=== PATIENT | female | born 1945 | race Caucasian/White ===

== ENCOUNTER 2017-06-03 17:10 | Inpatient (IN) | payer MEDICARE, MEDICAID ==
[~2017-06-03] VITALS: Ht 165.1 cm; Wt 64.9 kg
[2017-06-03] MEDS ORDERED: ALBUTEROL/IPRATROPIUM 2.5MG/0.5MG, 3 ML ONE (18:16)
[2017-06-03] MEDS ORDERED: ALBUTEROL/IPRATROPIUM 2.5MG/0.5MG, 3 ML NPPB ONE (18:30)
[2017-06-03] MEDS ORDERED: SODIUM CHLORIDE FLUSH 10ML SYR IVF ONE (18:30)
[2017-06-03] MEDS: SODIUM CHLORIDE 0.9% 1,000ML IVBOLUS ONE ×2 (18:43→18:44)
[2017-06-03 18:52] LABS: ALANINE AMINOTRANSFERASE 26 U/L (12-78); ALBUMIN 2.9 g/dL (3.4-5.0); ANION GAP 8 mmol/L (5-15); CALCIUM 7.6 mg/dL (8.5-10.1); CHLORIDE 105 mmol/L (98-107); CREATININE 0.74 mg/dL (0.55-1.02)
[2017-06-03 18:53] LABS: ALKALINE PHOSPHATASE 77 U/L (45-117); BILIRUBIN,TOTAL 0.8 mg/dL (0.2-1.0); TOTAL PROTEIN 6.5 g/dL (6.4-8.2)
[2017-06-03 18:56] LABS: MEAN CORPUSCULAR HEMOGLOBIN 29.4 pg (27.0-34.8); MEAN CORPUSCULAR HGB CONC 33.1 g/dL (32.4-35.8); MEAN CORPUSCULAR VOLUME 88.7 fL (80-100); MEAN PLATELET VOLUME 9.9 fL (7.4-10.4); PLATELET COUNT 195 x10^3/uL (130-400); RED BLOOD COUNT 5.54 x10^6/uL (3.82-5.3); RED CELL DISTRIBUTION WIDTH 14.1 % (9.6-15.2)
[2017-06-03 19:14] LABS: BASOPHILS # (AUTO) 0.02 x10^3/uL (0-0.1); BASOPHILS % (AUTO) 0 % (0-1); EOSINOPHILS # (AUTO) 0.15 x10^3/uL (0-0.4); EOSINOPHILS % (AUTO) 1 % (1-7); LYMPHOCYTES # (AUTO) 0.99 x10^3/uL (1-3.4); LYMPHOCYTES % (AUTO) 6 % (22-44); MD SCAN; MONOCYTES # (AUTO) 1.08 x10^3/uL (0.2-0.8); MONOCYTES % (AUTO) 7 % (2-9); NEUTROPHILS # (AUTO) 13.97 x10^3/uL (1.8-6.8); NEUTROPHILS % (AUTO) 86 % (42-75)
[2017-06-03] MEDS ORDERED: PRED5TAB PO (19:17)
[2017-06-03] MEDS ORDERED: OMEP-110 PO (19:17)
[2017-06-03] MEDS ORDERED: METO25TA35 PO (19:17)
[2017-06-03] MEDS ORDERED: DIGO125T PO (19:17)
[2017-06-03] MEDS ORDERED: BUDE10.2 INH (19:17)
[2017-06-03] MEDS ORDERED: POTA20TA14 PO (19:17)
[2017-06-03] MEDS ORDERED: ROSU5TAB PO (19:17)
[2017-06-03] MEDS ORDERED: FURO40TA6 PO (19:17)
[2017-06-03] MEDS ORDERED: ALBU8.5H8 INH (19:17)
[2017-06-03 20:02] LABS: CULTURE INDICATED? YES; MICROSCOPIC INDICATED
[2017-06-03 20:55] VITALS: BP 101/69
[2017-06-03] MEDS ORDERED: POTASSIUM CHLORIDE 40 MEQ in SODIUM CHLORIDE 0.9% 500 ML IV ONE (21:30)
[2017-06-03] MEDS ORDERED: ONDANSETRON 2MG/ML, 2ML IVPush PRN (21:30)
[2017-06-03] MEDS ORDERED: OXYcodone IR 5MG TABLET PO PRN (21:30)
[2017-06-03] MEDS ORDERED: ENALAPRILAT 1.25 MG/ML, 2ML IVPush PRN (21:30)
[2017-06-03] MEDS ORDERED: POLYETHYLENE GLYCOL 17 GM PACKET PO PRN (21:30)
[2017-06-03] MEDS ORDERED: morphine SULFATE 10 MG/ML, 1ML IVPush PRN (21:30)
[2017-06-03] MEDS ORDERED: POTASSIUM CHLORIDE 20 MEQ TAB.ER.PRT PO ONE (21:30)
[2017-06-03] MEDS ORDERED: BISACODYL 10 MG SUPP PR PRN (21:30)
[2017-06-03] MEDS ORDERED: hydrALAzine 20 MG/ML, 1ML IVPush PRN (21:30)
[2017-06-03] MEDS ORDERED: ALBUTEROL SULFATE 2.5 MG/3 ML NPPB PRN (22:00)
[2017-06-03 22:11] LABS: CREATINE KINASE, TOTAL 46 U/L (26-192); FREE T4 (FREE THYROXINE) 0.92 ng/dL (0.76-1.46)
[2017-06-03] MEDS: SODIUM CHLORIDE 0.9% 1,000 ML IV SCH (22:48)
[2017-06-03] MEDS: CEFTRIAXONE PMX 1GM/50ML 50 ML IV SCH (22:49)
[2017-06-03] MEDS: GUAIFENESIN ER 600 MG TABLET PO SCH (22:55)
[2017-06-03] MEDS: DOXYCYCLINE 100MG TABLET PO SCH (22:55)
[2017-06-03] MEDS: HEPARIN 5,000 UNITS/ML, 1ML SQ SCH (22:55)
[2017-06-03] MEDS: ATORVASTATIN 10 MG TABLET PO SCH (22:55)
[2017-06-03 23:09] LABS: HEMOGLOBIN A1C 6.4 % (4.2-6.3)
[2017-06-04] VITALS (7 sets, daily range): BP systolic 86–110; BP diastolic 60–70
[2017-06-04 04:39] LABS: BASOPHILS # (AUTO) 0.02 x10^3/uL (0-0.1); BASOPHILS % (AUTO) 0 % (0-1); EOSINOPHILS % (AUTO) 1 % (1-7); LYMPHOCYTES # (AUTO) 0.91 x10^3/uL (1-3.4); LYMPHOCYTES % (AUTO) 7 % (22-44); MD NO; MEAN CORPUSCULAR HEMOGLOBIN 29.8 pg (27.0-34.8); MEAN CORPUSCULAR HGB CONC 33.3 g/dL (32.4-35.8); MEAN CORPUSCULAR VOLUME 89.5 fL (80-100); MEAN PLATELET VOLUME 9.9 fL (7.4-10.4); MONOCYTES # (AUTO) 0.99 x10^3/uL (0.2-0.8); MONOCYTES % (AUTO) 8 % (2-9); NEUTROPHILS # (AUTO) 11.12 x10^3/uL (1.8-6.8); NEUTROPHILS % (AUTO) 85 % (42-75); PLATELET COUNT 151 x10^3/uL (130-400); RED BLOOD COUNT 4.94 x10^6/uL (3.82-5.3); RED CELL DISTRIBUTION WIDTH 14.2 % (9.6-15.2)
[2017-06-04 04:45] LABS: ALANINE AMINOTRANSFERASE 17 U/L (12-78); ALBUMIN 2.4 g/dL (3.4-5.0); ANION GAP 8 mmol/L (5-15); CALCIUM 7.3 mg/dL (8.5-10.1); CHLORIDE 111 mmol/L (98-107); CHOLESTEROL, TOTAL 175 mg/dL (140-239); CREATININE 0.63 mg/dL (0.55-1.02)
[2017-06-04 04:48] LABS: ALKALINE PHOSPHATASE 62 U/L (45-117); BILIRUBIN,TOTAL 0.5 mg/dL (0.2-1.0); HDL CHOLESTEROL (DIRECT) 47 mg/dL (40-60); TOTAL PROTEIN 5.5 g/dL (6.4-8.2); TRIGLYCERIDES 194 mg/dL (50-200); VLDL CHOLESTEROL 39 mg/dL (0-25)
[2017-06-04 06:12] LABS: LDL CHOLESTEROL,CALCULATED 89 mg/dL (54-169); LDL/HDL RATIO 1.9 (0.5-3.0)
[2017-06-04 06:13] LABS: CHOL/HDL RATIO 3.7; HDL CHOL % 27 % (28-40)
[2017-06-04] MEDS: ASPIRIN 325 MG TABLET EC PO SCH (06:16)
[2017-06-04] MEDS: POTASSIUM CHLORIDE 20 MEQ TAB.ER.PRT PO SCH (08:12)
[2017-06-04] MEDS: HEPARIN 5,000 UNITS/ML, 1ML SQ SCH ×3 (08:12→23:00)
[2017-06-04] MEDS: DOXYCYCLINE 100MG TABLET PO SCH ×2 (08:13→20:29)
[2017-06-04] MEDS: SENNA/DOCUSATE TABLET PO SCH (08:13)
[2017-06-04] MEDS: OMEPRAZOLE 20 MG CAPSULE.DR PO SCH (08:13)
[2017-06-04] MEDS: METOPROLOL TARTRATE 25 MG TABLET PO SCH ×2 (08:13→20:30)
[2017-06-04] MEDS: GUAIFENESIN ER 600 MG TABLET PO SCH ×2 (08:13→20:29)
[2017-06-04] MEDS: FLUTICASONE/VILANTEROL 200-25MCG/INH INH SCH (10:03)
[2017-06-04] MEDS: SODIUM CHLORIDE 0.9% 1,000 ML IV SCH ×3 (13:00→20:51)
[2017-06-04] MEDS: ATORVASTATIN 10 MG TABLET PO SCH (20:29)
[2017-06-04] MEDS ORDERED: DIGOXIN 0.125 MG TABLET PO SCH (21:00)
[2017-06-04] MEDS: CEFTRIAXONE PMX 1GM/50ML 50 ML IV SCH (21:53)
[2017-06-04] MEDS: ACETAMINOPHEN 325 MG TABLET PO PRN (22:24)
[2017-06-05 01:28] VITALS: BP 99/65
[2017-06-05] MEDS: SODIUM CHLORIDE 0.9% 1,000 ML IV SCH (03:49)
[2017-06-05 06:50] VITALS: BP 121/78
[2017-06-05] MEDS: HEPARIN 5,000 UNITS/ML, 1ML SQ SCH ×2 (07:00→15:00)
[2017-06-05] MEDS ORDERED: ERGOCALCIFEROL 50,000 UNIT CAPSULE PO SCH (07:30)
[2017-06-05] MEDS: SENNA/DOCUSATE TABLET PO SCH (08:43)
[2017-06-05] MEDS: DOXYCYCLINE 100MG TABLET PO SCH (08:43)
[2017-06-05] MEDS: POTASSIUM CHLORIDE 20 MEQ TAB.ER.PRT PO SCH (08:43)
[2017-06-05] MEDS: GUAIFENESIN ER 600 MG TABLET PO SCH (08:43)
[2017-06-05] MEDS: FLUTICASONE/VILANTEROL 200-25MCG/INH INH SCH (08:43)
[2017-06-05] MEDS: ACETAMINOPHEN 325 MG TABLET PO PRN (08:43)
[2017-06-05] MEDS: ASPIRIN 325 MG TABLET EC PO SCH (08:43)
[2017-06-05] MEDS: OMEPRAZOLE 20 MG CAPSULE.DR PO SCH (08:43)
[2017-06-05 09:10] LABS: BASOPHILS # (AUTO) 0.04 x10^3/uL (0-0.1); BASOPHILS % (AUTO) 0 % (0-1); EOSINOPHILS # (AUTO) 0.09 x10^3/uL (0-0.4); EOSINOPHILS % (AUTO) 1 % (1-7); LYMPHOCYTES % (AUTO) 10 % (22-44); MD NO; MEAN CORPUSCULAR HGB CONC 32.7 g/dL (32.4-35.8); MEAN CORPUSCULAR VOLUME 88.9 fL (80-100); MEAN PLATELET VOLUME 9.9 fL (7.4-10.4); MONOCYTES # (AUTO) 0.67 x10^3/uL (0.2-0.8); MONOCYTES % (AUTO) 8 % (2-9); NEUTROPHILS # (AUTO) 7.15 x10^3/uL (1.8-6.8); NEUTROPHILS % (AUTO) 81 % (42-75); PLATELET COUNT 141 x10^3/uL (130-400); RED BLOOD COUNT 4.74 x10^6/uL (3.82-5.3); RED CELL DISTRIBUTION WIDTH 14.4 % (9.6-15.2)
[2017-06-05 09:18] LABS: ANION GAP 4 mmol/L (5-15); CALCIUM 7.6 mg/dL (8.5-10.1); CHLORIDE 113 mmol/L (98-107)
[2017-06-05 09:19] LABS: CREATININE 0.62 mg/dL (0.55-1.02)
[2017-06-05 11:17] VITALS: BP 100/68
[2017-06-05 12:47] VITALS: BP 119/80
[2017-06-05] MEDS ORDERED: DOXY100T PO (14:21)
[2017-06-05] MEDS ORDERED: ASPI-650 PO (14:21)
== END 2017-06-05 17:35 | DRG 640 ==
LOC: ED 18:52 → EDIP 20:15 → 3NW 20:41 → 3NE 06-05 09:30
PROVIDERS: ADMIT Internal Medicine; ATTEND Internal Medicine
DX: E86.0 Dehydration (principal); E43 Unspecified severe protein-calorie malnutrition; D68.59 Other primary thrombophilia; I48.2 Chronic atrial fibrillation; I50.9 Heart failure, unspecified; N39.0 Urinary tract infection, site not specified; J40 Bronchitis, not specified as acute or chronic; E87.6 Hypokalemia; E78.5 Hyperlipidemia, unspecified; G47.00 Insomnia, unspecified; Z95.2 Presence of prosthetic heart valve; K21.9 Gastro-esophageal reflux disease without esophagitis; Z79.899 Other long term (current) drug therapy; Z68.23 Body mass index [BMI] 23.0-23.9, adult; Z88.8 Allergy status to other drugs, medicaments and biological substances
CPT/HCPCS: 36415; 71046; 80048; 80053; 80061; 80162; 81001; 82306; 82533; 82550; 82607; 83036; 83735; 84439; 84443; 85025; 87040; 87077; 87086; 93005; 94640; 99285; J0696; J1644; J3480; J7613; J7620; J7030; J7040

== ENCOUNTER 2018-01-31 21:32 | Inpatient (IN) | payer MEDICARE, MEDICAID ==
[~2018-01-31] VITALS: Ht 165.1 cm; Wt 73.1 kg
[~2018-01-31 21:32] MED LIST: ALBU8.5H8 INH; ASPI-650 PO; BUDE10.2 INH; DIGO125T PO; DOXY100T PO; FURO40TA6 PO; METO25TA35 PO; OMEP-110 PO; POTA20TA14 PO; PRED5TAB PO; ROSU5TAB PO
[2018-01-31] MEDS ORDERED: ALBUTEROL/IPRATROPIUM 2.5MG/0.5MG, 3 ML ONE (21:53)
[2018-01-31] MEDS ORDERED: SODIUM CHLORIDE FLUSH 10ML SYR IVF ONE (22:00)
[2018-01-31] MEDS ORDERED: methylPREDNISolone SOD SUCC 125 MG/2 ML IVP ONE (22:00)
[2018-01-31] MEDS ORDERED: ALBUTEROL/IPRATROPIUM 2.5MG/0.5MG, 3 ML NPPB SCH (22:00)
[2018-01-31] MEDS ORDERED: ALBUTEROL/IPRATROPIUM 2.5MG/0.5MG, 3 ML NPPB PRN (22:00)
[2018-01-31 22:03] LABS: BASOPHILS # (AUTO) 0.04 x10^3/uL (0-0.1); BASOPHILS % (AUTO) 0 % (0-1); EOSINOPHILS % (AUTO) 0 % (1-7); LYMPHOCYTES # (AUTO) 0.54 x10^3/uL (1-3.4); LYMPHOCYTES % (AUTO) 6 % (22-44); MD NO; MEAN CORPUSCULAR HEMOGLOBIN 27.7 pg (27.0-34.8); MEAN CORPUSCULAR HGB CONC 32.8 g/dL (32.4-35.8); MEAN CORPUSCULAR VOLUME 84.5 fL (80-100); MEAN PLATELET VOLUME 10.6 fL (7.4-10.4); MONOCYTES # (AUTO) 0.32 x10^3/uL (0.2-0.8); MONOCYTES % (AUTO) 3 % (2-9); NEUTROPHILS # (AUTO) 8.78 x10^3/uL (1.8-6.8); NEUTROPHILS % (AUTO) 91 % (42-75); PLATELET COUNT 152 x10^3/uL (130-400); RED BLOOD COUNT 5.22 x10^6/uL (3.82-5.3); RED CELL DISTRIBUTION WIDTH 15.6 % (9.6-15.2)
[2018-01-31 22:15] LABS: ALANINE AMINOTRANSFERASE 19 U/L (12-78); ALBUMIN 3.2 g/dL (3.4-5.0); ANION GAP 9 mmol/L (5-15); CALCIUM 8.1 mg/dL (8.5-10.1); CHLORIDE 101 mmol/L (98-107); CREATININE 0.96 mg/dL (0.55-1.02)
[2018-01-31] MEDS ORDERED: methylPREDNISolone SOD SUCC 125 MG/2 ML ONE (22:15)
[2018-01-31 22:19] LABS: ALKALINE PHOSPHATASE 82 U/L (45-117); BILIRUBIN,TOTAL 0.7 mg/dL (0.2-1.0); TOTAL PROTEIN 6.9 g/dL (6.4-8.2); TROPONIN I 0.029 ng/mL (0.000-0.045)
[2018-01-31] MEDS ORDERED: ALBUTEROL SULFATE 2.5 MG/3 ML ONE (22:21)
[2018-01-31] MEDS ORDERED: BUDESONIDE 0.5 MG/2 ML INHA ONE (22:21)
[2018-01-31] MEDS ORDERED: CEFTRIAXONE PMX 1GM/50ML 50 ML IV ONE (22:30)
[2018-01-31] MEDS ORDERED: ALBUTEROL SULFATE 2.5 MG/3 ML NPPB PRN (22:30)
[2018-01-31] MEDS ORDERED: AZITHROMYCIN 500 MG in SODIUM CHLORIDE 0.9% 250 ML IV ONE (22:30)
[2018-01-31] MEDS ORDERED: CEFTRIAXONE PMX 1GM/50ML 50 ML ONE (22:43)
[2018-01-31] MEDS ORDERED: METO25TA35 PO (22:51)
[2018-01-31] MEDS ORDERED: FURO-93 PO (22:51)
[2018-01-31] MEDS ORDERED: LEVO25TA4 PO (22:51)
[2018-01-31 23:30] VITALS: BP 107/67
[2018-02-01] MEDS ORDERED: AZITHROMYCIN 500 MG in SODIUM CHLORIDE 0.9% 250 ML IV ONE (01:00)
[2018-02-01] MEDS ORDERED: LABETALOL 5MG/ML, 20ML IVPush PRN (01:30)
[2018-02-01] MEDS ORDERED: DOCUSATE 100 MG CAPSULE PO PRN (01:30)
[2018-02-01] MEDS ORDERED: CEFTRIAXONE PMX 1GM/50ML 50 ML IV ONE (01:30)
[2018-02-01] MEDS ORDERED: morphine SULFATE 10 MG/ML, 1ML IVPush PRN (01:30)
[2018-02-01] MEDS ORDERED: GABAPENTIN 300 MG CAPSULE PO PRN (01:30)
[2018-02-01] MEDS ORDERED: POLYETHYLENE GLYCOL 17 GM PACKET PO PRN (01:30)
[2018-02-01] MEDS ORDERED: hydrALAzine 20 MG/ML, 1ML IVPush PRN (01:30)
[2018-02-01] MEDS ORDERED: BISACODYL 10 MG SUPP PR PRN (01:30)
[2018-02-01] MEDS ORDERED: ACETAMINOPHEN 325 MG TABLET PO PRN (01:30)
[2018-02-01] MEDS ORDERED: ONDANSETRON 2MG/ML, 2ML IVPush PRN (01:30)
[2018-02-01] MEDS ORDERED: OXYcodone IR 5MG TABLET PO PRN (01:30)
[2018-02-01] MEDS ORDERED: ONDANSETRON ODT 4 MG PO PRN (01:30)
[2018-02-01] MEDS: SODIUM CHLORIDE 0.9% 1,000 ML IV SCH ×2 (01:50→12:47)
[2018-02-01] MEDS: HEPARIN 5,000 UNITS/ML, 1ML SQ SCH ×3 (01:51→18:00)
[2018-02-01] MEDS: methylPREDNISolone SOD SUCC 125 MG/2 ML IVPush SCH ×4 (01:51→21:02)
[2018-02-01 01:55] VITALS: BP 95/59
[2018-02-01 02:04] LABS: FREE T4 (FREE THYROXINE) 1.31 ng/dL (0.76-1.46); HEMOGLOBIN A1C 6.6 % (4.2-6.3); THYROID STIMULATING HORMONE 0.876 mIU/L (0.358-3.740)
[2018-02-01 05:32] LABS: MEAN CORPUSCULAR HEMOGLOBIN 27.7 pg (27.0-34.8); MEAN CORPUSCULAR HGB CONC 32.6 g/dL (32.4-35.8); MEAN PLATELET VOLUME 11.1 fL (7.4-10.4); PLATELET COUNT 129 x10^3/uL (130-400); RED BLOOD COUNT 4.69 x10^6/uL (3.82-5.3); RED CELL DISTRIBUTION WIDTH 15.9 % (9.6-15.2)
[2018-02-01 05:41] LABS: ALBUMIN 2.6 g/dL (3.4-5.0); ANION GAP 9 mmol/L (5-15); CALCIUM 7.7 mg/dL (8.5-10.1); CHLORIDE 103 mmol/L (98-107)
[2018-02-01 05:46] LABS: ALANINE AMINOTRANSFERASE 15 U/L (12-78); ALKALINE PHOSPHATASE 70 U/L (45-117); BILIRUBIN,TOTAL 0.4 mg/dL (0.2-1.0); CHOL/HDL RATIO 2.5; CHOLESTEROL, TOTAL 156 mg/dL (140-239); CREATININE 0.66 mg/dL (0.55-1.02); HDL CHOL % 40 % (28-40); HDL CHOLESTEROL (DIRECT) 63 mg/dL (40-60); LDL CHOLESTEROL,CALCULATED 71 mg/dL (54-169); LDL/HDL RATIO 1.1 (0.5-3.0); TOTAL PROTEIN 5.9 g/dL (6.4-8.2); TRIGLYCERIDES 108 mg/dL (50-200); VLDL CHOLESTEROL 22 mg/dL (0-25)
[2018-02-01 05:55] LABS: BASOPHILS % (AUTO) 0 % (0-1); EOSINOPHILS % (AUTO) 0 % (1-7); LYMPHOCYTES # (AUTO) 0.17 x10^3/uL (1-3.4); LYMPHOCYTES % (AUTO) 2 % (22-44); MD SCAN; MONOCYTES # (AUTO) 0.13 x10^3/uL (0.2-0.8); MONOCYTES % (AUTO) 1 % (2-9); NEUTROPHILS # (AUTO) 11.38 x10^3/uL (1.8-6.8); NEUTROPHILS % (AUTO) 98 % (42-75)
[2018-02-01] MEDS: METOPROLOL SUCCINATE 25 MG TAB.ER.24H PO SCH (06:00)
[2018-02-01] MEDS: LEVOTHYROXINE 25 MCG TABLET PO SCH (06:24)
[2018-02-01] MEDS: ASPIRIN 325 MG TABLET EC PO SCH (06:24)
[2018-02-01 06:44] VITALS: BP 99/62
[2018-02-01] MEDS: ALBUTEROL/IPRATROPIUM 2.5MG/0.5MG, 3 ML NPPB SCH ×5 (06:54→22:58)
[2018-02-01] MEDS: OMEPRAZOLE 20 MG CAPSULE.DR PO SCH (07:54)
[2018-02-01] MEDS: BUDESONIDE 0.5 MG/2 ML INHA INH SCH ×2 (11:13→18:50)
[2018-02-01 14:46] VITALS: BP 91/64
[2018-02-01 18:40] VITALS: BP 102/63
[2018-02-01] MEDS ORDERED: TEMAZEPAM 15 MG CAPSULE ONE (20:57)
[2018-02-01] MEDS: TEMAZEPAM 30 MG CAPSULE PO PRN (21:02)
[2018-02-01] MEDS: DIGOXIN 0.125 MG TABLET PO SCH (21:02)
[2018-02-01] MEDS: ATORVASTATIN 10 MG TABLET PO SCH (21:03)
[2018-02-01] MEDS: CEFTRIAXONE PMX 2GM/50ML 50 ML IV SCH (23:06)
[2018-02-01] MEDS: AZITHROMYCIN 500 MG in SODIUM CHLORIDE 0.9% 250 ML IV SCH (23:51)
[2018-02-02 00:01] VITALS: BP 107/59
[2018-02-02] MEDS: HEPARIN 5,000 UNITS/ML, 1ML SQ SCH ×4 (01:15→18:00)
[2018-02-02 01:45] LABS: MICROSCOPIC INDICATED
[2018-02-02 01:52] LABS: CULTURE INDICATED? NO
[2018-02-02] MEDS: methylPREDNISolone SOD SUCC 125 MG/2 ML IVPush SCH ×2 (03:00→09:02)
[2018-02-02] MEDS: ASPIRIN 325 MG TABLET EC PO SCH (05:35)
[2018-02-02] MEDS: METOPROLOL SUCCINATE 25 MG TAB.ER.24H PO SCH (05:35)
[2018-02-02] MEDS: LEVOTHYROXINE 25 MCG TABLET PO SCH (05:36)
[2018-02-02] MEDS: ALBUTEROL/IPRATROPIUM 2.5MG/0.5MG, 3 ML NPPB SCH ×5 (06:35→22:00)
[2018-02-02 07:04] VITALS: BP 121/71
[2018-02-02] MEDS: OMEPRAZOLE 20 MG CAPSULE.DR PO SCH (09:02)
[2018-02-02] MEDS: BUDESONIDE 0.5 MG/2 ML INHA INH SCH ×2 (09:35→19:23)
[2018-02-02] MEDS: BENZONATATE 100 MG CAPSULE PO SCH ×3 (10:00→21:09)
[2018-02-02] MEDS: FUROSEMIDE 80 MG TABLET PO SCH (10:05)
[2018-02-02 12:14] VITALS: BP 108/69
[2018-02-02] MEDS: methylPREDNISolone SOD SUCC 40 MG/ML IVPush SCH (16:50)
[2018-02-02 19:17] VITALS: BP 109/77
[2018-02-02] MEDS ORDERED: TEMAZEPAM 15 MG CAPSULE ONE (21:04)
[2018-02-02] MEDS: DIGOXIN 0.125 MG TABLET PO SCH (21:08)
[2018-02-02] MEDS: ATORVASTATIN 10 MG TABLET PO SCH (21:08)
[2018-02-02] MEDS: TEMAZEPAM 30 MG CAPSULE PO PRN (21:09)
[2018-02-02] MEDS: CEFTRIAXONE PMX 2GM/50ML 50 ML IV SCH (22:00)
[2018-02-03] MEDS: AZITHROMYCIN 500 MG in SODIUM CHLORIDE 0.9% 250 ML IV SCH (00:08)
[2018-02-03 00:09] VITALS: BP 104/72
[2018-02-03] MEDS: methylPREDNISolone SOD SUCC 40 MG/ML IVPush SCH ×2 (01:16→08:32)
[2018-02-03] MEDS: HEPARIN 5,000 UNITS/ML, 1ML SQ SCH ×3 (01:16→18:00)
[2018-02-03 04:43] LABS: MEAN CORPUSCULAR HEMOGLOBIN 27.5 pg (27.0-34.8); MEAN CORPUSCULAR HGB CONC 32.4 g/dL (32.4-35.8); MEAN CORPUSCULAR VOLUME 84.9 fL (80-100); MEAN PLATELET VOLUME 11.6 fL (7.4-10.4); PLATELET COUNT 124 x10^3/uL (130-400); RED BLOOD COUNT 4.25 x10^6/uL (3.82-5.3)
[2018-02-03 04:55] LABS: ANION GAP 8 mmol/L (5-15); CALCIUM 7.6 mg/dL (8.5-10.1); CHLORIDE 103 mmol/L (98-107)
[2018-02-03 04:56] LABS: CREATININE 0.63 mg/dL (0.55-1.02)
[2018-02-03 05:46] LABS: BASOPHILS % (AUTO) 0 % (0-1); EOSINOPHILS % (AUTO) 0 % (1-7); LYMPHOCYTES % (AUTO) 1 % (22-44); MD SCAN; MONOCYTES # (AUTO) 0.28 x10^3/uL (0.2-0.8); MONOCYTES % (AUTO) 2 % (2-9); NEUTROPHILS # (AUTO) 11.72 x10^3/uL (1.8-6.8); NEUTROPHILS % (AUTO) 97 % (42-75)
[2018-02-03] MEDS: METOPROLOL SUCCINATE 25 MG TAB.ER.24H PO SCH (06:00)
[2018-02-03] MEDS: ALBUTEROL/IPRATROPIUM 2.5MG/0.5MG, 3 ML NPPB SCH ×5 (06:00→22:00)
[2018-02-03] MEDS: LEVOTHYROXINE 25 MCG TABLET PO SCH (06:31)
[2018-02-03] MEDS: ASPIRIN 325 MG TABLET EC PO SCH (06:31)
[2018-02-03 06:55] VITALS: BP 114/77
[2018-02-03] MEDS: BUDESONIDE 0.5 MG/2 ML INHA INH SCH ×2 (07:35→18:28)
[2018-02-03] MEDS: BENZONATATE 100 MG CAPSULE PO SCH ×3 (08:32→20:21)
[2018-02-03] MEDS: FUROSEMIDE 80 MG TABLET PO SCH (08:32)
[2018-02-03] MEDS: OMEPRAZOLE 20 MG CAPSULE.DR PO SCH (08:32)
[2018-02-03] MEDS ORDERED: METOPROLOL SUCCINATE 25 MG TAB.ER.24H PO ONE (10:00)
[2018-02-03 14:12] VITALS: BP 107/74
[2018-02-03] MEDS: methylPREDNISolone SOD SUCC 125 MG/2 ML IVPush SCH (16:38)
[2018-02-03 18:49] VITALS: BP 105/70
[2018-02-03] MEDS ORDERED: TEMAZEPAM 15 MG CAPSULE ONE (20:15)
[2018-02-03] MEDS: ATORVASTATIN 10 MG TABLET PO SCH (20:22)
[2018-02-03] MEDS: DIGOXIN 0.125 MG TABLET PO SCH (20:22)
[2018-02-03] MEDS: TEMAZEPAM 30 MG CAPSULE PO PRN (20:23)
[2018-02-03] MEDS ORDERED: POTASSIUM CHLORIDE 20 MEQ TAB.ER.PRT PO ONE (21:00)
[2018-02-03] MEDS: CEFTRIAXONE PMX 2GM/50ML 50 ML IV SCH (22:16)
[2018-02-04] MEDS: AZITHROMYCIN 500 MG in SODIUM CHLORIDE 0.9% 250 ML IV SCH
[2018-02-04 00:49] VITALS: BP 90/58
[2018-02-04] MEDS: HEPARIN 5,000 UNITS/ML, 1ML SQ SCH ×3 (02:00→18:00)
[2018-02-04] MEDS: BENZONATATE 100 MG CAPSULE PO SCH ×2 (04:01→16:06)
[2018-02-04 05:19] VITALS: BP 92/57
[2018-02-04] MEDS: LEVOTHYROXINE 25 MCG TABLET PO SCH (05:21)
[2018-02-04] MEDS: ASPIRIN 325 MG TABLET EC PO SCH (05:21)
[2018-02-04 05:46] LABS: CHLORIDE 97 mmol/L (98-107)
[2018-02-04 05:58] LABS: ANION GAP 7 mmol/L (5-15); CALCIUM 8.1 mg/dL (8.5-10.1); CREATININE 0.53 mg/dL (0.55-1.02)
[2018-02-04] MEDS ORDERED: METOPROLOL SUCCINATE 50 MG TAB.ER.24H PO SCH (06:00)
[2018-02-04] MEDS: ALBUTEROL/IPRATROPIUM 2.5MG/0.5MG, 3 ML NPPB SCH ×5 (06:00→22:00)
[2018-02-04 06:57] LABS: MEAN CORPUSCULAR HEMOGLOBIN 27.8 pg (27.0-34.8); MEAN CORPUSCULAR HGB CONC 32.7 g/dL (32.4-35.8); MEAN CORPUSCULAR VOLUME 84.9 fL (80-100); PLATELET COUNT 107 x10^3/uL (130-400); RED BLOOD COUNT 4.01 x10^6/uL (3.82-5.3); RED CELL DISTRIBUTION WIDTH 15.5 % (9.6-15.2)
[2018-02-04] MEDS: BUDESONIDE 0.5 MG/2 ML INHA INH SCH ×2 (07:11→18:30)
[2018-02-04 07:14] LABS: BASOPHILS # (AUTO) 0.01 x10^3/uL (0-0.1); BASOPHILS % (AUTO) 0 % (0-1); EOSINOPHILS % (AUTO) 0 % (1-7); LYMPHOCYTES # (AUTO) 0.15 x10^3/uL (1-3.4); LYMPHOCYTES % (AUTO) 2 % (22-44); MD SCAN; MONOCYTES # (AUTO) 0.19 x10^3/uL (0.2-0.8); MONOCYTES % (AUTO) 2 % (2-9); NEUTROPHILS # (AUTO) 8.74 x10^3/uL (1.8-6.8); NEUTROPHILS % (AUTO) 96 % (42-75)
[2018-02-04 07:19] VITALS: BP 90/56
[2018-02-04 08:00] VITALS: BP 101/68
[2018-02-04] MEDS: methylPREDNISolone SOD SUCC 125 MG/2 ML IVPush SCH ×3 (08:11→16:06)
[2018-02-04] MEDS: OMEPRAZOLE 20 MG CAPSULE.DR PO SCH (08:12)
[2018-02-04] MEDS: FUROSEMIDE 80 MG TABLET PO SCH (08:12)
[2018-02-04] MEDS ORDERED: OMNIPAQUE 350 MG/ML, 75ML BOTTLE ONE (11:27)
[2018-02-04 13:25] VITALS: BP 109/56
[2018-02-04 18:54] VITALS: BP 103/69
[2018-02-04] MEDS ORDERED: TEMAZEPAM 15 MG CAPSULE ONE (21:05)
[2018-02-04] MEDS: DIGOXIN 0.125 MG TABLET PO SCH (21:13)
[2018-02-04] MEDS: ATORVASTATIN 10 MG TABLET PO SCH (21:13)
[2018-02-04] MEDS: TEMAZEPAM 30 MG CAPSULE PO PRN (21:15)
[2018-02-04] MEDS: CEFTRIAXONE PMX 2GM/50ML 50 ML IV SCH (22:06)
[2018-02-05] MEDS: BENZONATATE 100 MG CAPSULE PO SCH ×4 (00:17→23:43)
[2018-02-05] MEDS: methylPREDNISolone SOD SUCC 125 MG/2 ML IVPush SCH ×3 (00:17→18:29)
[2018-02-05] MEDS: AZITHROMYCIN 500 MG in SODIUM CHLORIDE 0.9% 250 ML IV SCH ×2 (00:17→23:43)
[2018-02-05] MEDS ORDERED: ALBUTEROL SULFATE 2.5 MG/3 ML ONE (00:31)
[2018-02-05] MEDS ORDERED: ALBUTEROL SULFATE 2.5 MG/3 ML NPPB PRN (01:00)
[2018-02-05] MEDS: HEPARIN 5,000 UNITS/ML, 1ML SQ SCH ×3 (02:00→17:25)
[2018-02-05 02:13] VITALS: BP 90/60
[2018-02-05 05:06] VITALS: BP 109/73
[2018-02-05] MEDS: ASPIRIN 325 MG TABLET EC PO SCH (05:08)
[2018-02-05] MEDS: METOPROLOL SUCCINATE 25 MG TAB.ER.24H PO SCH (05:08)
[2018-02-05] MEDS: LEVOTHYROXINE 25 MCG TABLET PO SCH (05:08)
[2018-02-05] MEDS: ALBUTEROL/IPRATROPIUM 2.5MG/0.5MG, 3 ML NPPB SCH ×5 (06:00→22:00)
[2018-02-05] MEDS: BUDESONIDE 0.5 MG/2 ML INHA INH SCH ×2 (07:13→21:00)
[2018-02-05 07:37] VITALS: BP 92/59
[2018-02-05] MEDS ORDERED: FUROSEMIDE 80 MG TABLET PO SCH (09:00)
[2018-02-05] MEDS: DILTIAZEM 30 MG TABLET PO SCH ×4 (10:05→22:02)
[2018-02-05] MEDS: OMEPRAZOLE 20 MG CAPSULE.DR PO SCH (10:06)
[2018-02-05 13:50] VITALS: BP 96/61
[2018-02-05] MEDS ORDERED: TEMAZEPAM 15 MG CAPSULE ONE (19:59)
[2018-02-05 20:03] VITALS: BP 102/70
[2018-02-05] MEDS: TEMAZEPAM 30 MG CAPSULE PO PRN (20:13)
[2018-02-05] MEDS: ATORVASTATIN 10 MG TABLET PO SCH (20:13)
[2018-02-05] MEDS: DIGOXIN 0.125 MG TABLET PO SCH (20:14)
[2018-02-05 21:58] VITALS: BP 94/57
[2018-02-05] MEDS: CEFTRIAXONE PMX 2GM/50ML 50 ML IV SCH (22:02)
[2018-02-06 00:44] VITALS: BP 103/67
[2018-02-06] MEDS: HEPARIN 5,000 UNITS/ML, 1ML SQ SCH ×2 (02:00→09:17)
[2018-02-06] MEDS: methylPREDNISolone SOD SUCC 125 MG/2 ML IVPush SCH ×2 (02:32→08:01)
[2018-02-06 04:07] VITALS: BP 97/62
[2018-02-06] MEDS: DILTIAZEM 30 MG TABLET PO SCH ×2 (04:08→10:10)
[2018-02-06] MEDS: ALBUTEROL/IPRATROPIUM 2.5MG/0.5MG, 3 ML NPPB SCH ×3 (06:00→13:55)
[2018-02-06 06:23] VITALS: BP 130/75
[2018-02-06] MEDS: LEVOTHYROXINE 25 MCG TABLET PO SCH (06:25)
[2018-02-06] MEDS: METOPROLOL SUCCINATE 25 MG TAB.ER.24H PO SCH (06:25)
[2018-02-06] MEDS: ASPIRIN 325 MG TABLET EC PO SCH (06:25)
[2018-02-06 06:43] VITALS: BP 110/72
[2018-02-06] MEDS: BUDESONIDE 0.5 MG/2 ML INHA INH SCH (07:09)
[2018-02-06] MEDS: OMEPRAZOLE 20 MG CAPSULE.DR PO SCH (08:01)
[2018-02-06] MEDS: BENZONATATE 100 MG CAPSULE PO SCH (08:01)
[2018-02-06] MEDS ORDERED: FUROSEMIDE 40 MG TABLET PO SCH ×2 (09:00)
[2018-02-06 10:42] LABS: MEAN CORPUSCULAR HGB CONC 31.8 g/dL (32.4-35.8); MEAN CORPUSCULAR VOLUME 84.8 fL (80-100); MEAN PLATELET VOLUME 11.6 fL (7.4-10.4); PLATELET COUNT 119 x10^3/uL (130-400); RED BLOOD COUNT 4.01 x10^6/uL (3.82-5.3); RED CELL DISTRIBUTION WIDTH 15.9 % (9.6-15.2)
[2018-02-06 11:02] LABS: BASOPHILS % (AUTO) 0 % (0-1); EOSINOPHILS % (AUTO) 0 % (1-7); LYMPHOCYTES # (AUTO) 0.09 x10^3/uL (1-3.4); LYMPHOCYTES % (AUTO) 1 % (22-44); MD SCAN; MONOCYTES # (AUTO) 0.12 x10^3/uL (0.2-0.8); MONOCYTES % (AUTO) 2 % (2-9); NEUTROPHILS # (AUTO) 7.82 x10^3/uL (1.8-6.8); NEUTROPHILS % (AUTO) 97 % (42-75)
[2018-02-06 13:19] VITALS: BP 100/66
[2018-02-06] MEDS ORDERED: IPRA3AMP30 NPPB (14:08)
[2018-02-06] MEDS ORDERED: METO25TA91 PO (14:08)
[2018-02-06] MEDS ORDERED: ALBU2.5V NPPB (14:08)
[2018-02-06] MEDS ORDERED: PRED5TAB PO (14:08)
[2018-02-06] MEDS ORDERED: DOCU-131 PO (14:08)
[2018-02-06] MEDS ORDERED: FURO40TA6 PO (14:08)
[2018-02-06] MEDS ORDERED: DILT30TA27 PO (14:08)
== END 2018-02-06 15:10 | DRG 193 ==
LOC: ED 22:20 → EDIP 22:30 → ED 22:51 → 3NW 23:19
PROVIDERS: ADMIT Internal Medicine; ATTEND Internal Medicine
DX: J15.9 Unspecified bacterial pneumonia (principal); J96.01 Acute respiratory failure with hypoxia; J44.0 Chronic obstructive pulmonary disease with (acute) lower respiratory infection; D68.59 Other primary thrombophilia; I50.32 Chronic diastolic (congestive) heart failure; J45.42 Moderate persistent asthma with status asthmaticus; J44.1 Chronic obstructive pulmonary disease with (acute) exacerbation; I48.2 Chronic atrial fibrillation; E03.9 Hypothyroidism, unspecified; E78.5 Hyperlipidemia, unspecified; I08.1 Rheumatic disorders of both mitral and tricuspid valves; K21.9 Gastro-esophageal reflux disease without esophagitis; Z90.49 Acquired absence of other specified parts of digestive tract; Z95.2 Presence of prosthetic heart valve; Z88.8 Allergy status to other drugs, medicaments and biological substances
CPT/HCPCS: 36415; 71045; 71275; 80048; 80053; 80061; 81001; 83036; 83735; 83880; 84439; 84443; 84484; 85025; 87040; 93005; 93306; 94640; 94668; 96374; 96375; G0378; J0456; J0696; J1644; J7613; J7620; J7626; Q9967; J2920; J2930; J7030; J7050

== ENCOUNTER 2018-02-07 11:44 | Inpatient (IN) | payer MEDICARE, MEDICAID ==
[~2018-02-07] VITALS: Ht 165.1 cm; Wt 64.8 kg
[~2018-02-07 11:44] MED LIST changes: +ALBU2.5V NPPB; +DILT30TA27 PO; +DOCU-131 PO; +FURO-93 PO; +IPRA3AMP30 NPPB; +LEVO25TA4 PO; +METO25TA91 PO
[2018-02-07 13:05] LABS: CHLORIDE 99 mmol/L (98-107)
[2018-02-07 13:09] LABS: ALBUMIN 2.1 g/dL (3.4-5.0); ANION GAP 8 mmol/L (5-15); CALCIUM 7.5 mg/dL (8.5-10.1)
[2018-02-07 13:10] LABS: MEAN CORPUSCULAR HEMOGLOBIN 28.1 pg (27.0-34.8); MEAN CORPUSCULAR HGB CONC 33.3 g/dL (32.4-35.8); MEAN CORPUSCULAR VOLUME 84.5 fL (80-100); PLATELET COUNT 151 x10^3/uL (130-400); RED CELL DISTRIBUTION WIDTH 15.9 % (9.6-15.2)
[2018-02-07 13:13] LABS: ALANINE AMINOTRANSFERASE 24 U/L (12-78); ALKALINE PHOSPHATASE 92 U/L (45-117); BILIRUBIN,TOTAL 0.3 mg/dL (0.2-1.0); CREATININE 0.59 mg/dL (0.55-1.02); TOTAL PROTEIN 5.7 g/dL (6.4-8.2)
[2018-02-07] MEDS ORDERED: ALBUTEROL/IPRATROPIUM 2.5MG/0.5MG, 3 ML ONE (13:17)
[2018-02-07 13:55] LABS: MD YES
[2018-02-07 13:56] LABS: LYMPH#(MANUAL) 0.34 x10^3/uL (1-3.4); LYMPHS% (MANUAL) 3 % (22-44); METAMYELOCYTES# (MANUAL) 0.11 x10^3/uL (0-0); METAMYELOCYTES% (MANUAL) 1 % (0-1); MONOS#(MANUAL) 0.11 x10^3/uL (0.3-2.7); MONOS% (MANUAL) 1 % (2-9); MYELOCYTES# (MANUAL) 0.11 x10^3/uL (0-0); MYELOCYTES% (MANUAL) 1 % (0-0); SEG#(MANUAL) 10.53 x10^3/uL (1.8-6.8); SEGS% (MANUAL) 94 % (42-75)
[2018-02-07 13:58] LABS: <PLATELET ESTIMATE> ADEQUATE; LARGE PLATELETS 1+; OVALOCYTES 1+; POLYCHROMASIA 1+
[2018-02-07] MEDS ORDERED: OXYcodone IR 5MG TABLET PO PRN (16:30)
[2018-02-07] MEDS ORDERED: ACETAMINOPHEN 325 MG TABLET PO PRN (16:30)
[2018-02-07] MEDS ORDERED: ONDANSETRON 2MG/ML, 2ML IVPush PRN (16:30)
[2018-02-07] MEDS ORDERED: ALBUTEROL/IPRATROPIUM 2.5MG/0.5MG, 3 ML HHN SCH (17:00)
[2018-02-07 18:14] VITALS: BP 106/74
[2018-02-07] MEDS: ALBUTEROL/IPRATROPIUM 2.5MG/0.5MG, 3 ML HHN SCH (21:00)
[2018-02-08 01:47] VITALS: BP 100/65
[2018-02-08] MEDS: ALBUTEROL/IPRATROPIUM 2.5MG/0.5MG, 3 ML HHN SCH ×3 (03:00→14:46)
[2018-02-08] MEDS: MORPHINE SULFATE 4 MG/ML, 1ML IVPush PRN ×2 (04:19→07:33)
[2018-02-08 08:00] VITALS: BP 102/70
[2018-02-08] MEDS ORDERED: FUROSEMIDE 40 MG/4 ML IV SCH (09:00)
[2018-02-08 12:41] VITALS: BP 105/69
[2018-02-08] MEDS ORDERED: MORPHINE SULFATE 4 MG/ML, 1ML IVPush PRN (16:30)
[2018-02-08] MEDS ORDERED: ATROPINE OPHTH SOLN 1%, 2ML BC PRN (16:30)
[2018-02-08] MEDS ORDERED: SCOPOLAMINE PATCH, 1.5MG PATCH.TD72 TD SCH (17:00)
[2018-02-08] MEDS: LORazepam 2 MG/ML, 1ML IVPush PRN (21:33)
[2018-02-09] MEDS: LORazepam 2 MG/ML, 1ML IVPush PRN (00:15)
[2018-02-09] MEDS: MORPHINE SULFATE 4 MG/ML, 1ML IVPush PRN ×2 (01:09→03:24)
== END 2018-02-09 05:50 | disposition expired | DRG 291 ==
LOC: ED 11:58 → EDIP 15:28 → 3NW 17:01
PROVIDERS: ADMIT Internal Medicine; ATTEND Internal Medicine
DX: I50.33 Acute on chronic diastolic (congestive) heart failure (principal); J18.9 Pneumonia, unspecified organism; J96.01 Acute respiratory failure with hypoxia; J44.1 Chronic obstructive pulmonary disease with (acute) exacerbation; G93.40 Encephalopathy, unspecified; J44.0 Chronic obstructive pulmonary disease with (acute) lower respiratory infection; R62.7 Adult failure to thrive; K21.9 Gastro-esophageal reflux disease without esophagitis; E78.5 Hyperlipidemia, unspecified; E03.9 Hypothyroidism, unspecified; I48.2 Chronic atrial fibrillation; Z51.5 Encounter for palliative care; Z66 Do not resuscitate; Z79.01 Long term (current) use of anticoagulants; Z95.2 Presence of prosthetic heart valve; Z87.891 Personal history of nicotine dependence; Z87.01 Personal history of pneumonia (recurrent); Z90.49 Acquired absence of other specified parts of digestive tract
CPT/HCPCS: 36415; 71045; 80053; 83880; 84484; 85025; 93005; 94640; 99285; G0378; J1940; J2270; J7620; J2060